=== PATIENT | female | born 1950 | race Caucasian/White ===

== ENCOUNTER → 2016-12-11 | Outpatient (CLI) | payer MEDICARE | LOC: RT 12:03 | DX: R55 Syncope and collapse (principal) ==

== ENCOUNTER 2021-09-03 03:59 | Observation (INO) | payer MEDICARE ==
[~2021-09-03] VITALS: Ht 162.6 cm; Wt 78.9 kg
[2021-09-04 11:50] LABS: HEMOGLOBIN 12.3 gm/dl (12.3-15.3); RED BLOOD COUNT 4.44 M/UL (4.00-5.10); WHITE BLOOD COUNT 7.4 K/UL (4.5-11.0)
[2021-09-04 12:13] LABS: BUN/CREATININE RATIO 27 (0-10)
[2021-09-04] MEDS ORDERED: GABAPENTIN600 MG PO (16:43)
[2021-09-04] MEDS ORDERED: DICYCLOMINE HCL10 MG PO (16:44)
[2021-09-04] MEDS ORDERED: ENDOCET 5-3251 EACH PO (16:44)
[2021-09-04] MEDS ORDERED: TRESIBA FL100 UNIT/1 INJ (16:45)
[2021-09-04] MEDS ORDERED: PROTONIX20 MG PO (16:45)
[2021-09-04] MEDS ORDERED: LOSARTAN POTASS25 MG PO (16:45)
[2021-09-04] MEDS ORDERED: ATORVASTATIN CA20 MG PO (16:45)
[2021-09-04] MEDS ORDERED: ISOSORBIDE MON120 MG PO (16:46)
[2021-09-04] MEDS ORDERED: ELIQUIS5 MG PO (16:46)
[2021-09-04] MEDS ORDERED: RANOLAZINE ER500 MG PO (16:46)
[2021-09-04] MEDS ORDERED: METOPROLOL TART25 MG PO (16:47)
[2021-09-04] MEDS ORDERED: TRADJENTA5 MG PO (16:47)
[2021-09-04] MEDS ORDERED: CITALOPRAM HBR10 MG PO (16:48)
[2021-09-05] MEDS ORDERED: RANEXA500 MG PO (12:34)
== END 2021-09-05 17:15 | disposition home or self-care (01) ==
LOC: PROG CARE 09-04 10:10
PROVIDERS: Family Medicine; ADMIT Internal Medicine
DX: I25.119 Atherosclerotic heart disease of native coronary artery with unspecified angina pectoris (principal); I48.0 Paroxysmal atrial fibrillation; I42.1 Obstructive hypertrophic cardiomyopathy; I10 Essential (primary) hypertension; E78.5 Hyperlipidemia, unspecified; I73.9 Peripheral vascular disease, unspecified; F17.200 Nicotine dependence, unspecified, uncomplicated; J44.9 Chronic obstructive pulmonary disease, unspecified; E03.9 Hypothyroidism, unspecified; F12.10 Cannabis abuse, uncomplicated; E11.40 Type 2 diabetes mellitus with diabetic neuropathy, unspecified; M51.36 Other intervertebral disc degeneration, lumbar region; M81.0 Age-related osteoporosis without current pathological fracture; K21.9 Gastro-esophageal reflux disease without esophagitis; F41.9 Anxiety disorder, unspecified; F32.A Depression, unspecified; Z95.5 Presence of coronary angioplasty implant and graft; Z86.73 Personal history of transient ischemic attack (TIA), and cerebral infarction without residual deficits; Z79.01 Long term (current) use of anticoagulants; Z79.891 Long term (current) use of opiate analgesic; Z79.4 Long term (current) use of insulin; Z79.84 Long term (current) use of oral hypoglycemic drugs; Z79.899 Other long term (current) drug therapy; Z88.1 Allergy status to other antibiotic agents
CPT/HCPCS: ECHO; 36415; 71045; 78452; 80053; 82550; 82553; 82962; 83735; 83880; 84484; 85025; 85379; 85610; 93005; 93017; 93306; 93971; A9502; G0378; G0379; J2785; J3475